=== PATIENT | male | born 1970 | race Caucasian/White ===

== ENCOUNTER → 2017-07-23 | Outpatient (REF) ==
--- NOTE | 2017-07-23 15:32 | REP ---
T-spine series: Three views. History: Degenerative disc disease. Comparison study: December 06, 2014. Findings: There is a minimal dextroconvex upper thoracic curvature unchanged. Thoracic vertebral body heights are preserved. Alignment is normal. There is mild discogenic spurring anteriorly at the mid and lower thoracic levels. Swimmers lateral view shows no additional abnormality. Pedicles and posterior elements are intact. No paravertebral soft-tissue swelling or mass is seen. Impression: Mild dextroconvex curve and minimal degenerative disc changes. Otherwise negative. Signed by Duc Cm MD 07/23/2017 05:08 P
--- NOTE | 2017-07-23 17:42 | REP ---
RIGHT KNEE SERIES: Five views of the right knee are performed. There is no acute fracture or dislocation . There is minor lateral femoral compartment narrowing with a tiny spur of the lateral patellar facet and superior pole of the patella. There does not appear to be a significant joint effusion. IMPRESSION: Mild degenerative changes at the patellofemoral joint. Signed by Elton Morales MD 07/24/2017 08:58 A
== END ==
LOC: M SMT 13:59
PROVIDERS: ATTEND Internal Medicine
DX: M41.9 Scoliosis, unspecified (principal); M51.34 Other intervertebral disc degeneration, thoracic region; M17.11 Unilateral primary osteoarthritis, right knee